=== PATIENT | male | born 1935 | race Caucasian/White ===

== ENCOUNTER 2017-04-10 05:38 | Inpatient (IN) | payer MEDICARE, OTHER ==
[~2017-04-10] VITALS: Ht 167.6 cm; Wt 100.0 kg
[2017-04-10] VITALS (11 sets, daily range): BP systolic 68–115; BP diastolic 34–52
[2017-04-10] MEDS ORDERED: normal saline 1000ML IV soln IV ONE (06:30)
[2017-04-10] MEDS ORDERED: ondansetron 4mg rapidly disintigrating tab PO ONE (06:40)
[2017-04-10] MEDS ORDERED: diltiazem 5mg/ml 5ml inj. IV ONE ×2 (06:50→07:15)
[2017-04-10] MEDS ORDERED: ringers solution, lacted 1,000 ML IV ONE (07:00)
[2017-04-10 07:02] LABS: CLARITY,URINE SLIGHTLY CLOUDY (Clear); COLOR,URINE YELLOW (Yellow); GLUCOSE, URINE NEGATIVE (Neg); KETONES,URINE TRACE mg/dl (Neg); LEUKOCYTE ESTERASE ,URINE TRACE (Neg); NITRITES, URINE NEGATIVE (Neg); OCCULT BLOOD,URINE NEGATIVE (Neg); PROTEIN,URINE 30 mg/dl (Neg); UROBILINOGEN,URINE 0.2 E.U/dL (0.2-1.0)
[2017-04-10 07:06] LABS: UA COLLECTION TYPE FOLEY CATH
[2017-04-10 07:08] LABS: BACTERIA,URINE NONE SEEN /HPF (Neg); MUCUS STRANDS NONE SEEN /LPF (Neg); RBC,URINE 0-2 /HPF (0-2); SQUAMOUS EPITHELIAL CELL,UR FEW /LPF (FEW); TRANSITIONAL EPI CELLS,URINE FEW /HPF; WBC,URINE 0-4 /HPF (0-4)
[2017-04-10 07:11] LABS: BASOPHILS # (AUTO) 0.1 X10'3 (0-0.2); BASOPHILS % (AUTO) 0.5 % (0-1); EOSINOPHILS # (AUTO) 0.2 X10'3 (0-0.9); HEMATOCRIT 38.1 % (42.0-52.0); HEMOGLOBIN 12.2 g/dl (14.0-17.9); LYMPHOCYTES # (AUTO) 0.8 X10'3 (1.1-4.8); LYMPHOCYTES % (AUTO) 3.3 % (21-51); MEAN CORPUSCULAR HEMOGLOBIN 29.9 PG (27.0-31.0); MEAN CORPUSCULAR HGB CONC 31.9 % (33.0-36.5); MEAN CORPUSCULAR VOLUME 93.5 FL (78-98); MEAN PLATELET VOLUME 9.8 FL (7.4-10.4); MONOCYTES # (AUTO) 0.2 X10'3 (0-0.9); MONOCYTES % (AUTO) 0.8 % (2-12); NEUTROPHILS # (AUTO) 22.6 X10'3 (1.8-7.7); NEUTROPHILS % (AUTO) 94.4 % (42-75); PLATELET COUNT 230 X10'3 (140-440); RED BLOOD COUNT 4.08 X10'6 (4.70-6.10); RED CELL DISTRIBUTION WIDTH 36.9 % (11.5-14.5); WHITE BLOOD COUNT 23.9 X10'3 (4.5-11.0)
[2017-04-10] MEDS ORDERED: diltiazem-D5W 125mg/125ml 125 ML IV PRN (07:15)
[2017-04-10 07:21] LABS: INR 1.1 INR; PARTIAL THROMBOPLASTIN TIME 28 SECONDS (22-32); PROTHROMBIN TIME 11.1 SECONDS (9.0-12.0)
[2017-04-10 07:24] LABS: ALANINE AMINOTRANSFERASE 19 U/L (12-78); ALBUMIN 2.8 G/DL (3.4-5.0); ALKALINE PHOSPHATASE 82 IU/L (46-116); ANION GAP 13 (8-16); ASPARTATE AMINO TRANSFERASE 16 U/L (10-37); BILIRUBIN,TOTAL 1.5 MG/DL (0.1-1.0); BLOOD UREA NITROGEN 38 MG/DL (7-18); BUN/CREATININE RATIO 16.6 (5.4-32.0); CALCIUM 6.9 MG/DL (8.5-10.1); CHLORIDE 108 MMOL/L (99-107); CREATININE 2.29 MG/DL (0.60-1.10); GLUCOSE 126 MG/DL (70-104); POTASSIUM 4.5 MMOL/L (3.5-5.1); SODIUM 141 MMOL/L (135-145); TOTAL CARBON DIOXIDE 20.2 MMOL/L (24-32); TOTAL PROTEIN 5.6 G/DL (6.4-8.2); eGFR 27 ML/MIN
[2017-04-10] MEDS: NORepinephrine 8mg/ 250ml NS 250 ML IV PRN ×5 (07:31→23:59)
[2017-04-10 07:34] LABS: MAGNESIUM 1.8 MG/DL (1.5-2.4); PHOSPHORUS 3.9 MG/DL (2.3-4.5)
[2017-04-10] MEDS ORDERED: magnesium Cl slow-release 64mg tablet PO PRN (08:15)
[2017-04-10] MEDS ORDERED: K, MAG and/or Phos replacement - Verify level? MC SCH (08:15)
[2017-04-10] MEDS ORDERED: magnesium 2GM in 50ml NS 50 ML IV PRN (08:15)
[2017-04-10] MEDS ORDERED: sodium phosphate inj. 15 MMOL in dextrose 5%-water 150 ML IV PRN (08:15)
[2017-04-10] MEDS ORDERED: magnesium hydroxide 30ml (MOM) UD suspension PO PRN (08:15)
[2017-04-10] MEDS ORDERED: sodium phosphate inj. 30 MMOL in dextrose 5%-water 250 ML IV PRN (08:15)
[2017-04-10] MEDS ORDERED: ondansetron/PF 4mg/2ml inj IV PRN (08:15)
[2017-04-10] MEDS ORDERED: Neutra Phos packet PO PRN (08:15)
[2017-04-10] MEDS ORDERED: ipratropium/albuterol 3ml nebule NEB PRN (08:15)
[2017-04-10] MEDS ORDERED: magnesium 4gm in 100ml NS 100 ML IV PRN (08:15)
[2017-04-10] MEDS ORDERED: acetaminophen 325mg tablet PO PRN ×2 (08:15)
[2017-04-10] MEDS ORDERED: enoxaparin 40mg/0.4ml syringe SUBCUT SCH (08:15)
[2017-04-10] MEDS ORDERED: potassium Cl 20 mEq SR tablet PO PRN ×2 (08:15)
[2017-04-10 09:11] LABS: ABG BASE EXCESS -15.3 mmol/L (-2.0-3.0); ABG HCO3 11.3 mmol/L (22.0-26.0); ABG OXYGEN SATURATION 93.3 % (95-98); ABG PCO2 (T) 29.4 mmHg (35.0-48.0); ABG PH (T) 7.204 (7.350-7.450); ABG PO2 (T) 85.1 mmHg (83-108); FCOHb 0.4 % (0.5-1.5); FMetHb 0.2 % (0.3-1.12); FO2Hb 92.7 % (94-100); MINUTE VOLUME 14 L/min; RESPIRATORY RATE 14 b/min; RESPIRATORY RATE (OBSERVED) 22 b/min; TOTAL HEMOGLOBIN 11.1 G/dl (14.0-18.0)
[2017-04-10 09:18] LABS: TOTAL CELLS COUNTED 100
[2017-04-10 09:19] LABS: ANISOCYTOSIS 3+; ELLIPTOCYTES FEW; PLATELET ESTIMATE NORMAL; POLYCHROMASIA 1+; TARGET CELLS FEW
[2017-04-10 09:21] LABS: OXYGEN SATURATION (MIXED VEN) 64.5 % (60-80); PO2 MIXED VENOUS (TEMP COR) 42.9 mmHg (35-46)
[2017-04-10] MEDS ORDERED: sodium bicarbonate (8.4%) inj. 100 MEQ in dextrose 5%-water 1,000 ML IV SCH (11:35)
[2017-04-10] MEDS ORDERED: MIDAZolam 5mg/ml 2ml vial ONE (11:58)
[2017-04-10] MEDS ORDERED: midazolam 100mg in NS 100ml 100 ML IV PRN (12:08)
[2017-04-10 13:26] LABS: ABG BASE EXCESS -17.6 mmol/L (-2.0-3.0); ABG HCO3 9.3 mmol/L (22.0-26.0); ABG PCO2 (T) 25.8 mmHg (35.0-48.0); ABG PH (T) 7.173 (7.350-7.450); ABG PO2 (T) 68.1 mmHg (83-108); FMetHb 0.3 % (0.3-1.12); FO2Hb 88.7 % (94-100); MINUTE VOLUME 19 L/min; PEEP 5 cm H2O; RESPIRATORY RATE 16 b/min; RESPIRATORY RATE (OBSERVED) 36 b/min; TOTAL HEMOGLOBIN 11.2 G/dl (14.0-18.0)
[2017-04-10] MEDS: FENTANYL-0.9 % NACL/PF 100 ML IV PRN ×2 (14:02→21:03)
[2017-04-10] MEDS ORDERED: CefTRIAXone 2gm/NS 100ml IVPB 100 ML IV SCH (17:42)
[2017-04-10] MEDS ORDERED: levoFLOXACIN-Levaquin 750MG/D5 150 ML IV SCH ×2 (18:00→19:00)
[2017-04-10 19:15] LABS: OXYGEN SATURATION (MIXED VEN) 67.7 % (60-80)
[2017-04-10 19:20] LABS: ABG HCO3 7.3 mmol/L (22.0-26.0); ABG OXYGEN SATURATION 89.2 % (95-98); ABG PCO2 (T) 28.4 mmHg (35.0-48.0); ABG PH (T) 7.032 (7.350-7.450); ABG PO2 (T) 79.1 mmHg (83-108); FCOHb 0.1 % (0.5-1.5); FMetHb 0.3 % (0.3-1.12); FO2Hb 88.8 % (94-100); MINUTE VOLUME 14 L/min; PATIENT TEMPERATURE 37.5; PEEP 5 cm H2O; RESPIRATORY RATE 16 b/min; TIDAL VOLUME 500 mL; TOTAL HEMOGLOBIN 11.7 G/dl (14.0-18.0)
[2017-04-10 19:27] LABS: BASOPHILS # (AUTO) 0.2 X10'3 (0-0.2); BASOPHILS % (AUTO) 0.6 % (0-1); EOSINOPHILS % (AUTO) 0 % (0-6); HEMATOCRIT 34.8 % (42.0-52.0); HEMOGLOBIN 10.9 g/dl (14.0-17.9); LYMPHOCYTES # (AUTO) 0.5 X10'3 (1.1-4.8); LYMPHOCYTES % (AUTO) 1.5 % (21-51); MEAN CORPUSCULAR HEMOGLOBIN 29.7 PG (27.0-31.0); MEAN CORPUSCULAR HGB CONC 31.3 % (33.0-36.5); MEAN CORPUSCULAR VOLUME 95.1 FL (78-98); MEAN PLATELET VOLUME 9.9 FL (7.4-10.4); MONOCYTES # (AUTO) 0.3 X10'3 (0-0.9); MONOCYTES % (AUTO) 0.8 % (2-12); NEUTROPHILS # (AUTO) 34.4 X10'3 (1.8-7.7); NEUTROPHILS % (AUTO) 97.1 % (42-75); PLATELET COUNT 217 X10'3 (140-440); RED BLOOD COUNT 3.66 X10'6 (4.70-6.10); RED CELL DISTRIBUTION WIDTH 37.4 % (11.5-14.5)
[2017-04-10 19:35] LABS: WHITE BLOOD COUNT 35.4 X10'3 (4.5-11.0)
[2017-04-10 19:52] LABS: ALANINE AMINOTRANSFERASE 1102 U/L (12-78); ALBUMIN 2.3 G/DL (3.4-5.0); ALBUMIN/GLOBULIN RATIO 0.9 (1.1-1.5); ALKALINE PHOSPHATASE 69 IU/L (46-116); ANION GAP 20 (8-16); ASPARTATE AMINO TRANSFERASE 991 U/L (10-37); BILIRUBIN,TOTAL 1.5 MG/DL (0.1-1.0); BLOOD UREA NITROGEN 46 MG/DL (7-18); BUN/CREATININE RATIO 13.4 (5.4-32.0); CALCIUM 6.6 MG/DL (8.5-10.1); CHLORIDE 106 MMOL/L (99-107); CREATININE 3.44 MG/DL (0.60-1.10); GLUCOSE 112 MG/DL (70-104); SODIUM 138 MMOL/L (135-145); eGFR 17 ML/MIN
[2017-04-10 19:55] LABS: POTASSIUM 7.2 MMOL/L (3.5-5.1)
[2017-04-10 19:56] LABS: TOTAL CARBON DIOXIDE 11.6 MMOL/L (24-32)
[2017-04-10] MEDS ORDERED: sodium bicarbonate (8.4%) 1 mEq/ml syringe IV ONE (20:15)
[2017-04-10] MEDS ORDERED: sodium polystyrene sulfonate 15gm/60ml oral suspension PO ONE (20:15)
[2017-04-10] MEDS ORDERED: calcium chloride 100 MG/1 ML inj IV ONE ×2 (20:15→20:28)
[2017-04-10] MEDS ORDERED: dextrose 50%-water 50ml dispensing syringe IV ONE (20:15)
[2017-04-10] MEDS ORDERED: sodium bicarbonate (8.4%) inj. 150 MEQ in dextrose 5%-water 1,000 ML IV SCH (20:15)
[2017-04-10] MEDS ORDERED: insulin regular, human 10 units/0.1 ml syringe IV ONE (20:15)
[2017-04-10] MEDS ORDERED: vasopressin inj. 60 UNIT in normal saline 100ml IV soln 97 ML IV SCH (20:15)
[2017-04-10] MEDS ORDERED: sodium bicarbonate (8.4%) 1 mEq/ml syringe ONE (20:28)
[2017-04-10 20:53] LABS: INR 1.5 INR; PROTHROMBIN TIME 15.4 SECONDS (9.0-12.0)
[2017-04-10 20:54] LABS: PARTIAL THROMBOPLASTIN TIME 40 SECONDS (22-32)
[2017-04-10 21:39] LABS: PLATELET ESTIMATE NORMAL
[2017-04-10 21:40] LABS: GIANT PLATELET FEW; LARGE PLATELETS FEW
[2017-04-10 21:44] LABS: PLATELET COUNT 217 X10'3 (140-440)
[2017-04-11] VITALS (10 sets, daily range): BP systolic 106–140; BP diastolic 31–53
[2017-04-11 01:05] LABS: OXYGEN SATURATION (MIXED VEN) 70.6 % (60-80); PO2 MIXED VENOUS (TEMP COR) 54.3 mmHg (35-46)
[2017-04-11 01:10] LABS: ABG BASE EXCESS -20.6 mmol/L (-2.0-3.0); ABG OXYGEN SATURATION 90.9 % (95-98); ABG PCO2 (T) 35.6 mmHg (35.0-48.0); ABG PH (T) 7.026 (7.350-7.450); ABG PO2 (T) 83.1 mmHg (83-108); FCOHb 0.3 % (0.5-1.5); FMetHb 0.3 % (0.3-1.12); FO2Hb 90.4 % (94-100); MINUTE VOLUME 11 L/min; PATIENT TEMPERATURE 37.7; PEEP 5 cm H2O; RESPIRATORY RATE 20 b/min; RESPIRATORY RATE (OBSERVED) 21 b/min; TIDAL VOLUME 500 mL; TOTAL HEMOGLOBIN 11.5 G/dl (14.0-18.0)
[2017-04-11 01:34] LABS: INR 2.1 INR; PARTIAL THROMBOPLASTIN TIME 45 SECONDS (22-32); PROTHROMBIN TIME 21.5 SECONDS (9.0-12.0)
[2017-04-11 01:51] LABS: ALBUMIN 2.2 G/DL (3.4-5.0); ALBUMIN/GLOBULIN RATIO 0.8 (1.1-1.5); ALKALINE PHOSPHATASE 76 IU/L (46-116); ANION GAP 22 (8-16); BILIRUBIN,TOTAL 1.8 MG/DL (0.1-1.0); BLOOD UREA NITROGEN 47 MG/DL (7-18); BUN/CREATININE RATIO 12.4 (5.4-32.0); CALCIUM 6.6 MG/DL (8.5-10.1); CHLORIDE 105 MMOL/L (99-107); CREATININE 3.79 MG/DL (0.60-1.10); GLUCOSE 115 MG/DL (70-104); PHOSPHORUS 10.6 MG/DL (2.3-4.5); SODIUM 140 MMOL/L (135-145); TOTAL PROTEIN 4.9 G/DL (6.4-8.2); eGFR 15 ML/MIN
[2017-04-11 02:18] LABS: BASOPHILS % (AUTO) 0 % (0-1); EOSINOPHILS % (AUTO) 0.1 % (0-6); HEMATOCRIT 34.2 % (42.0-52.0); HEMOGLOBIN 10.8 g/dl (14.0-17.9); LYMPHOCYTES # (AUTO) 0.6 X10'3 (1.1-4.8); LYMPHOCYTES % (AUTO) 1.8 % (21-51); MEAN CORPUSCULAR HEMOGLOBIN 30.1 PG (27.0-31.0); MEAN CORPUSCULAR HGB CONC 31.5 % (33.0-36.5); MEAN CORPUSCULAR VOLUME 95.6 FL (78-98); MEAN PLATELET VOLUME 10.8 FL (7.4-10.4); MONOCYTES # (AUTO) 0.1 X10'3 (0-0.9); MONOCYTES % (AUTO) 0.1 % (2-12); NEUTROPHILS # (AUTO) 35.8 X10'3 (1.8-7.7); PLATELET COUNT 182 X10'3 (140-440); RED BLOOD COUNT 3.58 X10'6 (4.70-6.10); RED CELL DISTRIBUTION WIDTH 36.9 % (11.5-14.5)
[2017-04-11 02:22] LABS: WHITE BLOOD COUNT 36.6 X10'3 (4.5-11.0)
[2017-04-11 02:26] LABS: ALANINE AMINOTRANSFERASE 5352 U/L (12-78); ASPARTATE AMINO TRANSFERASE > 7000 U/L (10-37)
[2017-04-11 02:29] LABS: POTASSIUM 7.1 MMOL/L (3.5-5.1)
[2017-04-11 02:30] LABS: TROPONIN I 0.56 NG/ML (0.0-0.05)
[2017-04-11] MEDS ORDERED: dextrose 50%-water 50ml dispensing syringe IV ONE (04:40)
[2017-04-11] MEDS ORDERED: sodium bicarbonate (8.4%) 1 mEq/ml syringe IV ONE (04:40)
[2017-04-11] MEDS ORDERED: insulin regular, human 10 units/0.1 ml syringe IV ONE (04:40)
[2017-04-11] MEDS ORDERED: calcium chloride 100 MG/1 ML inj IV ONE (04:40)
[2017-04-11] MEDS: FENTANYL-0.9 % NACL/PF 100 ML IV PRN (06:56)
[2017-04-11 07:06] LABS: ACANTHOCYTES FEW; ANISOCYTOSIS 3+; ELLIPTOCYTES FEW; PLATELET ESTIMATE NORMAL; TEAR DROP CELLS FEW; TOTAL CELLS COUNTED 100
[2017-04-11] MEDS ORDERED: pantoprazole 40mg Tablet.DR PO SCH (07:30)
[2017-04-11] MEDS ORDERED: CefTRIAXone 2gm/D5W 50ml ADVTG 50 ML IV SCH (08:00)
[2017-04-11] MEDS ORDERED: levoFLOXACIN-Levaquin 750MG/D5 150 ML IV SCH (08:00)
[2017-04-11] MEDS ORDERED: LORazepam 2 mg/ml vial IV PRN (08:40)
[2017-04-11] MEDS ORDERED: mineral oil/petrolatum ophthal oint EACHEYE SCH (14:00)
[2017-04-15] MEDS ORDERED: methylnaltrexone br 12mg/0.6ml inj***SubQ only SQ SCH (08:00)
== END 2017-04-11 10:15 | disposition expired | DRG 871 ==
LOC: ER 05:39 → ED HOLD 08:13 → ICU 2S 08:37
PROVIDERS: ADMIT Internal Medicine Critical Care Medicine; ATTEND Internal Medicine Critical Care Medicine
PROC: 5A09357 Assistance with Respiratory Ventilation, Less than 24 Consecutive Hours, Continuous Positive Airway Pressure (ICD-10-PCS; principal; 2017-04-10)
PROC: 5A1935Z Respiratory Ventilation, Less than 24 Consecutive Hours (ICD-10-PCS; 2017-04-10)
PROC: 0BH17EZ Insertion of Endotracheal Airway into Trachea, Via Natural or Artificial Opening (ICD-10-PCS; 2017-04-10)
PROC: 02HV33Z Insertion of Infusion Device into Superior Vena Cava, Percutaneous Approach (ICD-10-PCS; 2017-04-10)
PROC: 04HK33Z Insertion of Infusion Device into Right Femoral Artery, Percutaneous Approach (ICD-10-PCS; 2017-04-10)
DX: A41.9 Sepsis, unspecified organism (principal); J18.1 Lobar pneumonia, unspecified organism; R65.21 Severe sepsis with septic shock; I48.91 Unspecified atrial fibrillation; E87.5 Hyperkalemia; K72.90 Hepatic failure, unspecified without coma; J44.0 Chronic obstructive pulmonary disease with (acute) lower respiratory infection; I25.10 Atherosclerotic heart disease of native coronary artery without angina pectoris; E66.9 Obesity, unspecified; Z51.5 Encounter for palliative care; Z68.35 Body mass index [BMI] 35.0-35.9, adult; Z88.2 Allergy status to sulfonamides; Z87.891 Personal history of nicotine dependence
CPT/HCPCS: 36415; 36600; 71045; 80053; 81001; 82803; 82810; 83605; 83735; 83880; 84100; 84145; 84443; 84484; 85018; 85025; 85379; 85384; 85610; 85730; 87040; 87070; 87088; 87502; 87503; 93005; 94002; 94003; 94660; 94760; 96374; 99291; A6212; A6213; A6449; C1751; C1758; J0696; J1650; J1815; J1956; J2250; J3490; J7030; J7120